=== PATIENT | female | born 1975 | race Caucasian/White ===

== ENCOUNTER 2019-01-16 13:48 | Emergency (ER) | payer OTHER ==
[~2019-01-16] VITALS: Ht 160 cm; Wt 132.9 kg
[~2019-01-16 13:48] MED LIST: ASPI-817 PO; METO-448 PO
[2019-01-16 14:01] VITALS: Ht 160 cm; Wt 132.9 kg
[2019-01-16] MEDS ORDERED: ONDANSETRON 4 MG INJ IV STA (15:21)
[2019-01-16] MEDS ORDERED: SOD CHLORIDE 0.9% 1,000 ML IV STA (15:21)
[2019-01-16] MEDS ORDERED: ASPIRIN 325 MG TAB PO STA (15:21)
[2019-01-16] MEDS ORDERED: morphine 4 MG/ML VIAL IV STA (15:21)
[2019-01-16 16:00] VITALS: BP 104/67; PULSE 100; RESP 20
== END 2019-01-16 17:07 | disposition home or self-care (01) ==
LOC: E/R 13:48
DX: I48.0 Paroxysmal atrial fibrillation (principal); Z79.82 Long term (current) use of aspirin
CPT/HCPCS: 36415; 71045; 80048; 81025; 84484; 85025; 85378; 85610; 85730; 93005; 96374; 96375; J2270; J2405; J7030; Z7502; Z7610